=== PATIENT | female | born 1940 | race Caucasian/White ===

== ENCOUNTER 2022-04-24 19:00 | Emergency (ER) | payer OTHER, MEDICARE ==
[2022-04-24] MEDS ORDERED: DIPHTH,PERTUSS(ACELL),TET 0.5 ML DISP.SYRIN IM ONE ×2 (19:54→20:30)
[2022-04-24 19:59] VITALS: BP 150/82; PULSE 67; TEMP 98.9; BMI 20.5
[2022-04-24] MEDS ORDERED: ACETAMINOPHEN 500 MG TABLET (FP) PO ONE (21:57)
[2022-04-24] MEDS ORDERED: CEPHALEXIN MONOHYDRATE 500 MG CAPSULE (UD) PO ONE (22:03)
[2022-04-24] MEDS ORDERED: ACETAMINOPHEN 500 MG TABLET (FP) ONE (22:15)
[2022-04-24] MEDS ORDERED: CEPHALEXIN MONOHYDRATE 500 MG CAPSULE (UD) ONE (22:15)
== END 2022-04-24 22:24 | disposition home or self-care (01) ==
LOC: FER 19:00
PROC: 3E0234Z Introduction of Serum, Toxoid and Vaccine into Muscle, Percutaneous Approach (ICD-10-PCS; principal; 2022-04-24)
DX: S52.021A Displaced fracture of olecranon process without intraarticular extension of right ulna, initial encounter for closed fracture (principal); W19.XXXA Unspecified fall, initial encounter
CPT/HCPCS: 71046-TC-FY; 73070-TC-RT-FY; 73110-TC-LT-FY; 90471; 90715; 99284-25